=== PATIENT | female | born 1955 | race Caucasian/White ===

== ENCOUNTER 2020-03-01 10:55 | Emergency (ER) | payer OTHER ==
[~2020-03-01] VITALS: Ht 147.3 cm; Wt 47.6 kg
[2020-03-01] MEDS ORDERED: COZAAR25 MG PO (11:08)
[2020-03-01] MEDS ORDERED: ADULT LOW DOSE81 M1 PO (11:09)
[2020-03-01] MEDS ORDERED: [UNRECOGNIZED DRUG - OTHER] (11:09)
[2020-03-01] MEDS ORDERED: ARMOUR THYROID15 MG PO (11:09)
[2020-03-01] MEDS ORDERED: LIPITOR20 MG PO (11:10)
== END 2020-03-01 23:15 | disposition home or self-care (01) ==
LOC: ER 10:55
DX: R10.11 Right upper quadrant pain (principal)

== ENCOUNTER 2022-08-08 09:27 | Outpatient (CLI) | payer OTHER ==
[~2022-08-08 09:27] MED LIST: ADULT LOW DOSE81 M1 PO; ARMOUR THYROID15 MG PO; COZAAR25 MG PO; LIPITOR20 MG PO; [UNRECOGNIZED DRUG - OTHER]
== END 2022-08-08 09:28 | disposition home or self-care (01) ==
LOC: SONOGRAMA 09:27
PROVIDERS: ATTEND Pathology Anatomic Pathology & Clinical Pathology
DX: E04.1 Nontoxic single thyroid nodule (principal); E03.8 Other specified hypothyroidism